=== PATIENT | male | born 1990 | race Caucasian/White ===

== ENCOUNTER → 2021-11-30 14:10 | Outpatient (CLI) | payer OTHER, SELFPAY ==
[2021-11-30 15:08] LABS: Semen Sperm Prescence Post-Vas Absent (ABSENT)
== END ==
PROVIDERS: PCP Family Medicine; Referring Provider Specialist; Visit Provider Specialist
DX: Z98.52 Vasectomy status (principal)
CPT/HCPCS: 89321

== ENCOUNTER → 2022-11-29 12:13 | Outpatient (CLI) | payer OTHER, SELFPAY ==
[2022-11-29 12:39] LABS: Semen Sperm Prescence Post-Vas Absent (ABSENT)
== END ==
PROVIDERS: PCP Family Medicine; Referring Provider Specialist; Visit Provider Specialist
DX: Z98.52 Vasectomy status (principal)
CPT/HCPCS: 89321